=== PATIENT | male | born 1995 | race Caucasian/White ===

== ENCOUNTER 2018-10-20 01:01 | Emergency (ER) | payer MEDICAID, OTHER ==
--- NOTE | 2018-10-20 01:32 | ED ---
Complex/Multi-Sys Presentation - HPI Summary HPI Summary: Patient is a 22 y/o M presenting to ED with complaints of sore throat, shoulders and back pain. He additionally that, "I feel cold, but my skin is hot ". He reports that this Sx onset about an hour ago. Sore throat has been present throughout the day. PMHx is denied. On triage, nothing is noted to aggravate/alleviate Sx. Home medications and allergies are reviewed. - History Of Current Complaint Chief Complaint: EDGeneral Time Seen by Provider: 10/20/18 01:21 Hx Obtained From: Patient Onset/Duration: Lasting Hours, Still Present Timing: Constant, Hours Location: Pain At: - throat Aggravating Factor(s): nothing Alleviating Factor(s): nothing Associated Signs And Symptoms: Positive: Back Pain, Other - positive - sore throat, shoulder pain, "I feel cold, but my skin is hot" - Allergies/Home Medications Allergies/Adverse Reactions: Allergies Allergy/AdvReac Type Severity Reaction Status Date / Time No Known Allergies Allergy Verified 10/20/18 01:08 PMH/Surg Hx/FS Hx/Imm Hx Endocrine/Hematology History: Denies: Hx Diabetes Cardiovascular History: Denies: Hx Hypertension Sensory History: Denies: Hx Legally Blind, Hx Deafness Opthamlomology History: Denies: Hx Legally Blind EENT History: Denies: Hx Deafness - Immunization History Immunizations Up to Date: Yes Infectious Disease History: No Infectious Disease History: Denies: Traveled Outside the [place] in Last 30 Days - Family History Known Family History: Negative: Cardiac Disease, Hypertension, Diabetes - Social History Alcohol Use: Occasionally Substance Use Type: Reports: None Smoking Status (MU): Light Every Day Tobacco Smoker Review of Systems Constitutional: Other - "I feel cold, but my skin is hot" Positive: Sore Throat Positive: Myalgia - back pain, shoulders pain All Other Systems Reviewed And Are Negative: Yes Physical Exam - Summary Physical Exam Summary: VITAL SIGNS: Reviewed. GENERAL: Patient is a well-developed and nourished male who is lying comfortable in the stretcher. Patient is not in any acute respiratory distress. HEAD AND FACE: No signs of trauma. No ecchymosis, hematomas or skull depressions. No sinus tenderness. EYES: PERRLA, EOMI x 2, No injected conjunctiva, no nystagmus. EARS: Hearing grossly intact. Ear canals and tympanic membranes are within normal limits. MOUTH: Oropharynx within normal limits. Pharyngeal erythema without exudate is noted. NECK: Supple, trachea is midline, no adenopathy, no JVD, no carotid bruit, no c- spine tenderness, neck with full ROM CHEST: Symmetric, no tenderness at palpation LUNGS: Clear to auscultation bilaterally. No wheezing or crackles. CVS: Regular rate and rhythm, S1 and S2 present, no murmurs or gallops appreciated. ABDOMEN: Soft, non-tender. No signs of distention. No rebound no guarding, and no masses palpated. Bowel sounds are normal. EXTREMITIES: FROM in all major joints, no edema, no cyanosis or clubbing. NEURO: Alert and oriented x 3. No acute neurological deficits. Speech is normal and follows commands. SKIN: Dry and warm Triage Information Reviewed: Yes Vital Signs On Initial Exam: Initial Vitals Temp Pulse Resp BP Pulse Ox 99.5 F 77 16 122/67 97 10/20/18 01:07 10/20/18 01:07 10/20/18 01:07 10/20/18 01:07 10/20/18 01:07 Vital Signs Reviewed: Yes Diagnostics - Vital Signs Vital Signs Temp Pulse Resp BP Pulse Ox 10/20/18 01:07 99.5 F 77 16 122/67 97 - Laboratory Result Diagrams: 10/20/18 02:01 10/20/18 02:01 Lab Statement: Any lab studies that have been ordered have been reviewed, and results considered in the medical decision making process. - Radiology CXR Radiology Interpretation Completed By: ED Physician Summary of Radiographic Findings: CXR SHOWED NO ACUTE PROCESS, PENDING OFFICIAL REPORT. Complex Multi-Symp Course/Dx Course Of Treatment: Patient is a 22 y/o M presenting to ED with complaints of sore throat, shoulder and back pain. He additionally that, "I feel cold, but my skin is hot". He reports that this Sx onset about an hour ago. Sore throat has been present throughout the day. PMHx is denied. On physical exam, pharyngeal erythema without exudate is noted. CXR is NAD. During ED course, patient received fluids, toradol 30 mg IV, augmentin 875 mg PO, and Tylenol 975 mg PO. Patient was discharged to home with prescription for motrin and augmentin, he was instructed to follow up with PCP and given strict return precautions. He is agreeable with discharge. - Diagnoses Provider Diagnoses: Pharyngitis Discharge - Sign-Out/Discharge Documenting (check all that apply): Patient Departure - discharge Patient Received Moderate/Deep Sedation with Procedure: No - Discharge Plan Condition: Stable Disposition: HOME Prescriptions: Amoxicillin/Clavulanate TAB* [Augmentin TAB 875*] 875 mg PO BID #20 tab Ibuprofen TAB* [Motrin TAB* 800 MG] 800 mg PO Q6H PRN #60 tab PRN Reason: Fever/Pain Patient Education Materials: Pharyngitis (ED) Referrals: [facility] [Outside] - 3 Days Additional Instructions: PLEASE RETURN TO THE ED IMMEDIATELY FOR WORSENING OR CONCERNING SYMPTOMS. FOLLOW UP WITH YOUR PRIMARY CARE PHYSICIAN WITHIN THREE DAYS. - Attestation Statements Document Initiated by Scribe: Yes Documenting Scribe: BAMBI BERGMAN Provider For Whom Scribe is Documenting (Include Credential): KEVIN NGUYEN MD Scribe Attestation: IBAMBI, scribed for KEVIN NGUYEN MD on 10/20/18 at 0435. Status of Scribe Document: Ready
[2018-10-20] MEDS ORDERED: Ketorolac INJ* 30 MG/ML 1 ML VIAL IV PUSH ONE (01:41)
[2018-10-20] MEDS ORDERED: Acetaminophen TAB* 325 MG PO ONE (01:41)
[2018-10-20] MEDS ORDERED: NS 0.9% 1000 ML** 1,000 ML IV ONE (01:42)
[2018-10-20 02:23] LABS: ABS Basophils 0.1 10^3/ul (0-0.2); ABS Eosinophils 0.1 10^3/ul (0-0.6); ABS Lymphocytes 1.4 10^3/ul (1.0-4.8); ABS Neutrophils 11.9 10^3/ul (1.5-7.7); Eosinophil % 0.4 %; Hematocrit 42 % (42-52); Hemoglobin 14.5 g/dL (14.0-18.0); Lymphocyte % 9.7 %; Mean Corpuscular HGB Conc 35 g/dL (31-36); Mean Corpuscular Hemoglobin 30 pg (27-31); Mean Corpuscular Volume 86 fL (80-94); Mean Platelet Volume 10.7 fL (7.4-10.4); Platelet Count 190 10^3/uL (150-450); Red Blood Count 4.87 10^6 /uL (4.18-5.48); Red Cell Distribution Width 13 % (10-15); White Blood Count 14.5 10^3/uL (3.5-10.8)
[2018-10-20 02:44] LABS: Rapid Strep Molecular Negative (Negative)
[2018-10-20 02:45] LABS: Albumin 4.7 g/dL (3.2-5.2); Albumin/Globulin Ratio 1.6 (1-3); BUN/Creatinine Ratio 17.3 (8-20); C Reactive Protein 13.35 mg/L (<8.01); Calcium 9.8 mg/dL (8.6-10.3); EGFR African American 156.2 (>60); EGFR Non-African American 129.1 (>60); Globulin 2.9 g/dL (2-4); Potassium 3.8 mmol/L (3.5-5.0); Total Bilirubin 0.6 mg/dL (0.2-1.0); Total Protein 7.6 g/dL (6.4-8.9)
[2018-10-20 03:31] LABS: Urine Appearance Clear; Urine Bilirubin Negative (Negative); Urine Blood Negative (Negative); Urine Color Yellow; Urine Glucose Negative (Negative); Urine Ketones Negative (Negative); Urine Nitrite Negative (Negative); Urine Protein Negative (Negative); Urine Specific Gravity 1.014 (1.010-1.030); Urine Urobilinogen Negative (Negative)
[2018-10-20] MEDS ORDERED: Amoxicillin/Clavulanate TAB* 875 MG PO ONE (03:50)
== END 2018-10-20 04:06 | disposition home or self-care (01) ==
LOC: ED 01:01
DX: J02.9 Acute pharyngitis, unspecified (principal); F17.210 Nicotine dependence, cigarettes, uncomplicated
CPT/HCPCS: 36415; 71045; 80053; 81003; 83605; 85025; 86140; 87040; 87651; 96361; 96374; 99283; A9270-GY; J1885

== ENCOUNTER 2018-12-07 11:54 | Emergency (ER) | payer OTHER ==
--- NOTE | 2018-12-07 14:21 | ED ---
Skin Complaint - HPI Summary HPI Summary: This patient is a 22 year old M presenting to [facility] accompanied by significant other with a chief complaint of abscess on left ankle since this morning. He states he noticed some redness to the back of his ankle today, and thought that he was bit by a spider. Reporting 6 /10 achy pain to his left ankle does not radiate, worse with walking. Denies fevers or chills. Had some scant purulent drainage from the area today. - History of Current Complaint Chief Complaint: EDRashSkinAbscess Time Seen by Provider: 12/07/18 14:00 Stated Complaint: SWELLING/REDNESS ON BACK OF LEFT HEEL PER PT Hx Obtained From: Patient Onset/Duration: Started Hours Ago, Still Present Timing: Constant Onset Severity: Moderate Current Severity: Moderate Pain Intensity: 6 Pain Scale Used: 0-10 Numeric Skin Location: Other: - left ankle Character: Swelling, Redness, Painful Aggravating Symptom(s): Other: - walking Alleviating Symptom(s): Nothing - Allergy/Home Medications Allergies/Adverse Reactions: Allergies Allergy/AdvReac Type Severity Reaction Status Date / Time No Known Allergies Allergy Verified 10/20/18 01:08 PMH/Surg Hx/FS Hx/Imm Hx Endocrine/Hematology History: Denies: Hx Diabetes Cardiovascular History: Denies: Hx Hypertension Sensory History: Denies: Hx Legally Blind, Hx Deafness Opthamlomology History: Denies: Hx Legally Blind Infectious Disease History: No Infectious Disease History: Denies: Traveled Outside the [place] in Last 30 Days - Family History Known Family History: Positive: Diabetes Negative: Cardiac Disease, Hypertension - Social History Alcohol Use: Occasionally Substance Use Type: Reports: None Smoking Status (MU): Light Every Day Tobacco Smoker Review of Systems Positive: Other - pos - left ankle pain Positive: Other - Abscess on left ankle All Other Systems Reviewed And Are Negative: Yes Physical Exam - Summary Physical Exam Summary: General: Well appearing, no distress Cardiovascular: Skin is well perfused Pulmonary: No respiratory distress, no tachypnea Abdomen: Non-distended Skin: Warm, Dry, 3 cm area of erythema without fluctuance to the left posterior ankle, folliculitis MSK: no edema, full ROM L ankle. Psych: Normal affect Neuro: A&Ox3 Triage Information Reviewed: Yes Vital Signs On Initial Exam: Initial Vitals Temp Pulse Resp BP Pulse Ox 99.8 F 74 18 149/70 96 12/07/18 11:58 12/07/18 11:58 12/07/18 11:58 12/07/18 11:58 12/07/18 11:58 Vital Signs Reviewed: Yes Diagnostics - Vital Signs Vital Signs Temp Pulse Resp BP Pulse Ox 12/07/18 13:41 98.9 F 60 16 121/69 100 12/07/18 11:58 99.8 F 74 18 149/70 96 - Laboratory Lab Statement: Any lab studies that have been ordered have been reviewed, and results considered in the medical decision making process. Course/Dx - Course Course Of Treatment: 22-year-old male presents with erythema to the left ankle. Physical exam with 3 cm of erythema consistent with cellulitis to the posterior left ankle, does not involve the joint, no pain of with range of motion. Suspect cellulitis 2/2 folliculitis. Will give Bactrim twice a day for 7 days - Diagnoses Provider Diagnoses: Cellulitis Discharge - Sign-Out/Discharge Documenting (check all that apply): Patient Departure - Discharge Patient Received Moderate/Deep Sedation with Procedure: No - Discharge Plan Condition: Stable Disposition: HOME Prescriptions: Sulfamethox/Trimethoprim DS* [Bactrim DS 800/160 TAB*] 1 tab PO BID 7 Days #14 tab Patient Education Materials: Cellulitis (ED) Referrals: [facility] [Outside] Additional Instructions: You were seen in the emergency department for cellulitis. Please take Bactrim twice a day for 7 days. Please return for worsening pain, swelling, drainage from the area, fevers or if you are concerned - Billing Disposition and Condition Condition: STABLE Disposition: Home - Attestation Statements Document Initiated by Lila: Yes Documenting Scribe: Radha Zuleta Provider For Whom Lila is Documenting (Include Credential): Dr. Hetal Silva MD Scribe Attestation: Radha Sterling scribed for Dr. Hetal Silva MD on 12/07/18 at 1430. Scribe Documentation Reviewed: Yes Provider Attestation: The documentation as recorded by the Radha hillman accurately reflects the service I personally performed and the decisions made by me, Dr. Hetal Silva MD Status of Scribe Document: Viewed
[2018-12-07 14:52] VITALS: BP 140/74
== END 2018-12-07 14:45 | disposition home or self-care (01) ==
LOC: ED 11:54
DX: L03.116 Cellulitis of left lower limb (principal); Z72.0 Tobacco use
CPT/HCPCS: 99281

== ENCOUNTER 2019-01-10 12:53 | Emergency (ER) | payer OTHER ==
[2019-01-10 14:51] VITALS: BP 129/83
--- NOTE | 2019-01-10 15:02 | ED ---
Throat Pain/Nasal Congestion - HPI Summary HPI Summary: Patient is a 23-year-old male presenting to the ED with left back molar pain 3 days. He states he has been taking Tylenol and ibuprofen without relief. Pain is currently rated an 8/10. He states he has a follow-up appointment in 4 days with his dentist at [facility]. Likely will have most of his teeth pulled at that visit. Denies any fevers, sweats, chills. Denies any difficulty swallowing or airway compromise. Denies any ear pain. He has never had dental abscesses or infections in the past. - History of Current Complaint Chief Complaint: EDDentalPain Time Seen by Provider: 01/10/19 13:51 Hx Obtained From: Patient Onset/Duration: Sudden Onset Severity: Mild - Epiglottits Risk Factors Epiglottis Risk Factors: Negative - Allergies/Home Medications Allergies/Adverse Reactions: Allergies Allergy/AdvReac Type Severity Reaction Status Date / Time No Known Allergies Allergy Verified 01/10/19 13:05 PMH/Surg Hx/FS Hx/Imm Hx Previously Healthy: Yes Endocrine/Hematology History: Denies: Hx Diabetes Cardiovascular History: Denies: Hx Hypertension Sensory History: Denies: Hx Legally Blind, Hx Deafness Opthamlomology History: Denies: Hx Legally Blind - Immunization History Hx Pertussis Vaccination: No Immunizations Up to Date: Yes Infectious Disease History: No Infectious Disease History: Denies: Traveled Outside the [place] in Last 30 Days - Family History Known Family History: Positive: Diabetes Negative: Cardiac Disease, Hypertension - Social History Occupation: Employed Full-time Lives: With Family Alcohol Use: None Hx Substance Use: No Substance Use Type: Reports: None Smoking Status (MU): Light Every Day Tobacco Smoker Review of Systems Negative: Fever, Chills, Fatigue, Skin Diaphoresis Positive: Dental Pain Negative: Palpitations, Chest Pain Negative: Shortness Of Breath, Cough Genitourinary: Negative Positive: no symptoms reported, see HPI Negative: Arthralgia, Myalgia Neurological: Negative All Other Systems Reviewed And Are Negative: Yes Physical Exam Triage Information Reviewed: Yes Vital Signs On Initial Exam: Initial Vitals Temp Pulse Resp BP Pulse Ox 100.2 F 87 14 137/77 95 01/10/19 13:03 01/10/19 13:03 01/10/19 13:03 01/10/19 13:03 01/10/19 13:03 Vital Signs Reviewed: Yes Appearance: Positive: Well-Appearing, Well-Nourished Skin: Positive: Warm, Skin Color Reflects Adequate Perfusion Head/Face: Positive: Normal Head/Face Inspection Eyes: Positive: EOMI, NADIR, Conjunctiva Clear Dental: Positive: Other - left back molar pain Neck: Positive: Supple, No Lymphadenopathy Respiratory/Lung Sounds: Positive: Clear to Auscultation, Breath Sounds Present Cardiovascular: Positive: RRR, Pulses are Symmetrical in both Upper and Lower Extremities Musculoskeletal: Positive: Normal, Strength/ROM Intact Neurological: Positive: Sensory/Motor Intact, Speech Normal Psychiatric: Positive: Affect/Mood Appropriate Diagnostics - Vital Signs Vital Signs Temp Pulse Resp BP Pulse Ox 01/10/19 14:50 99.3 F 68 18 129/83 99 01/10/19 13:03 100.2 F 87 14 137/77 95 - Laboratory Lab Statement: Any lab studies that have been ordered have been reviewed, and results considered in the medical decision making process. EENT Course/Dx - Course Course Of Treatment: Patient is evaluated for left back molar pain 3 days. He states he has never had a dental abscess in the past. He has been denying any fevers, sweats, chills or drainage from the area. He has been taking ibuprofen with minimal relief of symptoms. Denies any known allergies. Patient is given penicillin as well as hydrocodone for relief. He will follow up with Martin becki as scheduled in a few days. - Diagnoses Provider Diagnoses: Pain, dental Discharge ED - Sign-Out/Discharge Documenting (check all that apply): Patient Departure Patient Received Moderate/Deep Sedation with Procedure: No - Discharge Plan Condition: Stable Disposition: HOME Prescriptions: HYDROcodone/ACETAMIN 5-325 MG* [[place] 5-325 TAB*] 1 tab PO Q4H PRN #18 tab MDD 6 PRN Reason: Pain Penicillin VK 500 MG TAB(NF) [Penicillin VK 500 mg Tab(NF)] 500 mg PO TID #21 tab MDD 3 Patient Education Materials: Toothache (ED) Referrals: No Primary Care Phys,NOPCP [Primary Care Provider] - Additional Instructions: Follow-up with dentist as scheduled next week Penicillin 3 times daily 7 days Hydrocodone 4 times daily for pain, however it may be used to 6 times daily if you are not getting good relief Do not take Tylenol of taking this medication Ibuprofen 600 mg 3 times daily on opposite schedule of hydrocodone Ambesol over the counter for tooth discomfort Cloves also help - Billing Disposition and Condition Condition: STABLE Disposition: Home - Attestation Statements Provider Attestation: I was available for consultation for this patient. I did not evaluate the patient, or participate in any medical decision making or disposition decisions unless I am specifically named in the chart as having consulted on the patient. If I have consulted on the patient, please see my own ED note on the patient encounter. Hetal Silva MD
== END 2019-01-10 14:50 | disposition home or self-care (01) ==
LOC: ED 12:53
DX: K08.89 Other specified disorders of teeth and supporting structures (principal); F17.200 Nicotine dependence, unspecified, uncomplicated
CPT/HCPCS: 99282